=== PATIENT | male | born 1975 | race Caucasian/White ===

== ENCOUNTER 2020-04-10 04:01 | Emergency (ER) | payer OTHER ==
[2020-04-10 04:21] VITALS: BP 147/100
[2020-04-10] MEDS ORDERED: Adacel Vial IM ONE ×2 (04:22→04:25)
--- NOTE | 2020-04-10 04:29 | ERPHSYRPT ---
- History of Present Illness Time Seen by Provider: 04/10/20 04:13 Source: patient Exam Limitations: no limitations Patient Subjective Stated Complaint: "i cut my finger." Triage Nursing Assessment: Patient reported that he was cleaning a knife at home with the cap covering the blade slipped and he cut his left thumb. Pt reported a throbbing pain without numbness/tingling. Patient has 2.5 cm laceration to the anterior aspect of the left thumb. Bleeding controlled at this time. No noted adipose tissue or muscle exposure. adequate capillary refill noted. Full ROM noted with moderate pain elicited upon movement. Physician History: 44 years old presented in the ER after accidentally getting a laceration left thumb while cleaning a knife when it cap slipped off. There was bleeding initially but stopped with applying pressure. Complaining of dull aching mild to moderate pain with movements and palpation. No numbness of thumb tip. Unsure about tetanus status. No injury anywhere else. Reports having couple drinks earlier but no drug abuse. Occurred: just prior to arrival Method of Injury: incised Quality: constant Severity of Pain-Max: moderate Severity of Pain-Current: mild Extremities Pain Location: thumb: left Modifying Factors: Improves With: movement Associated Symptoms: none Allergies/Adverse Reactions: No Known Drug Allergies Allergy (Unverified 04/10/20 04:08) Hx Tetanus, Diphtheria Vaccination/Date Given: No Hx Influenza Vaccination/Date Given: No Travel Risk - International Travel Have you traveled outside of the country in past 3 weeks: No - Coronavirus Screening Are you exhibiting any of the following symptoms?: No Close contact with a COVID-19 positive Pt in past 14-21 Days: No - Review of Systems Constitutional: No Symptoms Eyes: No Symptoms Ears, Nose, & Throat: No Symptoms Respiratory: No Symptoms Cardiac: No Symptoms Abdominal/Gastrointestinal: No Symptoms Genitourinary Symptoms: No Symptoms Musculoskeletal: No Symptoms Skin: No Symptoms Neurological: No Symptoms Psychological: Anxiety Endocrine: No Symptoms Hematologic/Lymphatic: No Symptoms Immunological/Allergic: No Symptoms - Past Medical History Pertinent Past Medical History: Yes Cardiac History: Hypertension - Past Surgical History Past Surgical History: Yes Gastrointestinal: Hernia Repair - Social History Smoking Status: Current every day smoker Exposure to second hand smoke: Yes Drug Use: marijuana Patient Lives Alone: Yes - Nursing Vital Signs Nursing Vital Signs: Initial Vital Signs Temperature 98.3 F 04/10/20 04:02 Pulse Rate 110 H 04/10/20 04:02 Respiratory Rate 18 04/10/20 04:02 Blood Pressure 147/100 04/10/20 04:02 O2 Sat by Pulse Oximetry 100 04/10/20 04:02 Pain Scale Pain Intensity 4 - Physical Exam General Appearance: no apparent distress, alert, anxiety Eyes, Ears, Nose, Throat Exam: normal ENT inspection Neck Exam: normal inspection, supple, full range of motion Cardiovascular/Respiratory Exam: normal breath sounds, tachycardia Abdominal Exam: non-tender Shoulder Exam: normal inspection Elbow/Forearm Exam: normal inspection Wrist Exam: normal inspection Hand Exam: laceration (Left anterior thumb 2.5 cm superficial cut with no active spurting, minimal ooze) Neuro/Tendon Exam: normal sensation, normal motor functions, normal tendon functions Mental Status Exam: alert, oriented x 3, cooperative Skin Exam: normal color, warm SpO2 Interpretation: normal SpO2: 100 O2 Delivery: Room Air Procedures - Laceration/Wound Repair Left Finger Wound Location: Left, hand Wound Length (cm): 2.5 Wound's Depth, Shape: superficial Wound Explored: clean Irrigated: Yes Hibiclens Prep: Yes Wound Repaired With: Steri-strips, Dermabond Sterile Dressing Applied?: Yes - Progress Progress: improved Progress Note: 04/10/20 04:27 Superficial laceration, given option of suturing versus Dermabond and patient opted for Dermabond with Steri-Strips. Laceration is repaired. Tetanus is updated. Recommended outpatient follow-up. - Departure Departure Disposition: Home Clinical Impression: Laceration of thumb Qualifiers: Encounter type: initial encounter Damage to nail status: without damage Foreign body presence: without foreign body Laterality: left Qualified Code(s): S61.012A - Laceration without foreign body of left thumb without damage to nail, initial encounter Condition: Stable Critical Care Time: No Referrals: DARRYL DIMAS MD [ACTIVE STAFF] - Follow Up with PCP/3 days Instructions: Common Finger Injuries (DC) Additional Instructions: Use Tylenol/ibuprofen as needed for pain. Keep it clean. Avoid putting in water for next 48 hours. Follow-up with primary care for reevaluation. Return to ER for increasing pain swelling redness discharge/fever or chills.
[2020-04-10 04:34] VITALS: PULSE 118; O2SAT 97
== END 2020-04-10 04:34 | disposition home or self-care (01) ==
LOC: ED 04:01
DX: S61.012A Laceration without foreign body of left thumb without damage to nail, initial encounter (principal); W26.0XXA Contact with knife, initial encounter
CPT/HCPCS: 12001; 90471; 90715; 99283